=== PATIENT | female | born 1990 ===

== ENCOUNTER → 2018-03-23 | Outpatient (CLI) | payer SELFPAY ==
[2018-03-23 13:39] LABS: BACTERIA (WET MOUNT) 3+ BACTERIA SEEN; T.VAGINALIS (WET MOUNT) NO TRICHOMONAS SEEN; WBCS (WET MOUNT) 1+ WBCS SEEN; YEAST (WET MOUNT) NO YEAST SEEN
[2018-03-23 13:40] LABS: EPITHELIALS (WET MOUNT) 3+ EPITHELIALS SEEN
== END ==
LOC: LAB 13:05
PROVIDERS: ATTEND Nurse Practitioner Family
DX: N89.8 Other specified noninflammatory disorders of vagina (principal)
CPT/HCPCS: 87210